=== PATIENT | female | born 1990 | race Caucasian/White ===

== ENCOUNTER 2021-12-21 23:06 | Emergency (ER) | payer SELFPAY ==
[~2021-12-21] VITALS: Ht 157.5 cm; Wt 61.2 kg
[2021-12-21] MEDS ORDERED: DEXAMETHASONE 4 MG TAB PO STA (23:46)
[2021-12-22] MEDS ORDERED: HYDROXYZINE HCL25 MG PO (00:22)
== END 2021-12-22 00:52 | disposition home or self-care (01) ==
LOC: ER 23:12
DX: L50.9 Urticaria, unspecified (principal)
CPT/HCPCS: 99282; J8540

== ENCOUNTER 2021-12-25 18:26 | Emergency (ER) | payer SELFPAY ==
[~2021-12-25] VITALS: Ht 157.5 cm; Wt 61.2 kg
[~2021-12-25 18:26] MED LIST: HYDROXYZINE HCL25 MG PO
== END 2021-12-25 19:03 | disposition home or self-care (01) ==
LOC: ER 18:54
DX: R21 Rash and other nonspecific skin eruption (principal)
CPT/HCPCS: 99282